=== PATIENT | female | born 1965 | race Caucasian/White ===

== ENCOUNTER → 2016-05-14 | Outpatient (CLI) | payer OTHER ==
--- NOTE | 2016-05-28 08:27 | MM ---
Reason for exam: screening (asymptomatic). Last mammogram was performed 2 years and 8 months ago. History: Patient is nulliparous. Physical Findings: A clinical breast exam by your physician is recommended on an annual basis and results should be correlated with mammographic findings. MG Screening Mammo w CAD Bilateral CC and MLO view(s) were taken. There are scattered fibroglandular densities. No significant changes when compared with prior studies. ASSESSMENT: Negative, BI-RAD 1 RECOMMENDATION: Routine screening mammogram of both breasts in 1 year.
== END ==
LOC: RADMAMWWP 10:15
PROVIDERS: ATTEND Internal Medicine
DX: Z12.31 Encounter for screening mammogram for malignant neoplasm of breast (principal)

== ENCOUNTER 2016-10-11 10:52 | Emergency (ER) | payer OTHER ==
[2016-10-11] MEDS ORDERED: SODIUM CHLORIDE 0.9% 500 ML IV STA (11:26)
--- NOTE | 2016-10-11 11:37 | ED ---
General Adult HPI - General Chief complaint: Extremity Injury, Lower Stated complaint: medication reaction Time Seen by Provider: 10/11/16 11:09 Source: patient Mode of arrival: ambulatory Limitations: no limitations - History of Present Illness Initial comments: This patient is a 51-year-old woman presenting to be evaluated for a number of symptoms that been going on for about 3-4 days. The patient complains of having some mid abdominal pain that she describes as aching. She rates it as moderate, intermittent, and associated with some nausea. She has not noticed anything that helps the pain or makes it get worse. She also has been having symptoms including anxiety, cough, and feeling short of breath that been going on for about the same period of time. Patient went and saw her physician who did give her some medication that she has tried but is not helping. Patient denies associated chest pain, but she has had some diaphoresis. Onset/Timin -: days(s) - Related Data Home Medications Medication Instructions Recorded Confirmed Albuterol Inhaler [Ventolin Hfa 2 puff INHALATION RT-Q6H PRN 07/07/15 10/11/16 Inhaler] Metoprolol Tartrate [Lopressor] 25 mg PO BID 07/07/15 10/11/16 Sertraline [Zoloft] 200 mg PO DAILY 07/07/15 10/11/16 Simvastatin [Zocor] 20 mg PO HS 07/07/15 10/11/16 traZODone HCL [Desyrel] 100 - 200 mg PO HS 07/07/15 10/11/16 Baclofen 10 mg PO BID PRN 04/25/16 10/11/16 Omeprazole [PriLOSEC] 40 mg PO DAILY 04/25/16 10/11/16 Albuterol Nebulized [Ventolin 2.5 mg INHALATION RT-Q6H PRN 10/11/16 10/11/16 Nebulized] Calcium Carbonate [Calcium] 600 mg PO DAILY 10/11/16 10/11/16 Loratadine [Claritin] 1 tab PO DAILY 10/11/16 10/11/16 Ranitidine HCl 150 mg PO BID PRN 10/11/16 10/11/16 buPROPion HCL [Wellbutrin XL] 300 mg PO DAILY 10/11/16 10/11/16 busPIRone HCL [Buspar] 7.5 mg PO BID 10/11/16 10/11/16 Allergies Allergy/AdvReac Type Severity Reaction Status Date / Time amoxicillin AdvReac Nausea & Verified 10/11/16 13:29 Vomiting Review of Systems ROS Statement: Those systems with pertinent positive or pertinent negative responses have been documented in the HPI. ROS Other: All systems not noted in ROS Statement are negative. Constitutional: Denies: fever, chills Respiratory: Reports: cough, dyspnea. Denies: wheezes, hemoptysis Cardiovascular: Reports: palpitations. Denies: chest pain, orthopnea, edema, syncope Gastrointestinal: Reports: abdominal pain, nausea. Denies: vomiting, diarrhea, constipation, melena, hematochezia Genitourinary: Denies: dysuria, hematuria Skin: Denies: rash Neurological: Denies: headache, weakness, numbness Psychiatric: Reports: anxiety. Denies: homicidal thoughts, suicidal thoughts Past Medical History Past Medical History: Asthma, COPD, GERD/Reflux, GI Bleed, Hyperlipidemia, Hypertension Additional Past Medical History / Comment(s): "Esophageal Ulcers"; Insomnia, ARTRITIS, CARPEL TUNNEL ON LEFT, "PRE-MATURE OVARIES", CHRONIC NAUSEA History of Any Multi-Drug Resistant Organisms: None Reported Past Surgical History: Orthopedic Surgery Additional Past Surgical History / Comment(s): Carpal Tunnel Surgery Past Anesthesia/Blood Transfusion Reactions: No Reported Reaction Past Psychological History: Anxiety, Depression Additional Psychological History / Comment(s): pt. states her depression is helped with medication Smoking Status: Current every day smoker Past Alcohol Use History: None Reported Additional Past Alcohol Use History / Comment(s): pt. states she is down to smoking one cigarette a day Past Drug Use History: Marijuana General Exam Limitations: no limitations General appearance: alert, anxious Head exam: Present: atraumatic, normocephalic Eye exam: Present: normal appearance. Absent: scleral icterus, conjunctival injection ENT exam: Present: mucous membranes dry Neck exam: Present: normal inspection, full ROM Respiratory exam: Present: normal lung sounds bilaterally. Absent: respiratory distress, wheezes, rales, rhonchi, stridor Cardiovascular Exam: Present: normal rhythm, tachycardia, normal heart sounds. Absent: systolic murmur, diastolic murmur, rubs, gallop GI/Abdominal exam: Present: soft, diminished bowel sounds. Absent: distended, tenderness, guarding, rebound, mass, pulsatile mass Extremities exam: Present: normal inspection, normal capillary refill. Absent: pedal edema, calf tenderness Back exam: Present: normal inspection. Absent: CVA tenderness (R), CVA tenderness (L) Neurological exam: Present: alert Psychiatric exam: Present: anxious. Absent: homicidal ideation, suicidal ideation Skin exam: Present: warm, intact, normal color, diaphoretic. Absent: rash Course Vital Signs 10/11/16 10/11/16 10/11/16 10:59 13:00 13:23 Temperature 97.1 F L 98.1 F Pulse Rate 120 H 90 81 Respiratory 20 18 18 Rate Blood Pressure 138/95 144/96 140/77 O2 Sat by Pulse 100 99 Oximetry 10/11/16 15:12 Temperature 98.8 F Pulse Rate 80 Respiratory 18 Rate Blood Pressure 155/69 O2 Sat by Pulse 99 Oximetry EKG Findings - EKG Comments: EKG Findings:: SD interval 122 ms, QRS duration 74 ms QTC 414 ms - EKG Results: EKG: interpreted by ERMD, sinus rhythm (Rate 85 bpm), normal axis, normal QRS - Blocks, [place], Hypertrophy, ST Abn: Repolarization changes or abnormalities: nonspecific abnormality, ST segment, and/or T wave Medical Decision Making - Lab Data Result diagrams: 10/11/16 11:56 10/11/16 11:56 Lab Results 10/11/16 10/11/16 10/11/16 Range/Units 11:55 11:56 11:56 WBC (3.8-10.6) k/uL RBC (3.80-5.40) m/uL Hgb (11.4-16.0) gm/dL Hct (34.0-46.0) % MCV (80.0-100.0) fL MCH (25.0-35.0) pg MCHC (31.0-37.0) g/dL RDW (11.5-15.5) % Plt Count (150-450) k/uL Neutrophils % % Lymphocytes % % Monocytes % % Eosinophils % % Basophils % % Neutrophils # (1.3-7.7) k/uL Lymphocytes # (1.0-4.8) k/uL Monocytes # (0-1.0) k/uL Eosinophils # (0-0.7) k/uL Basophils # (0-0.2) k/uL D-Dimer 0.27 (<0.60) mg/L FEU Sodium (137-145) mmol/L Potassium (3.5-5.1) mmol/L Chloride (98-107) mmol/L Carbon Dioxide (22-30) mmol/L Anion Gap mmol/L BUN (7-17) mg/dL Creatinine (0.52-1.04) mg/dL Est GFR (MDRD) Af Amer (>60 ml/min/1.73 sqM) Est GFR (MDRD) Non-Af (>60 ml/min/1.73 sqM) Glucose (74-99) mg/dL Plasma Lactic Acid Mehran (0.7-2.0) mmol/L Calcium (8.4-10.2) mg/dL Total Bilirubin (0.2-1.3) mg/dL AST (14-36) U/L ALT (9-52) U/L Alkaline Phosphatase (38-126) U/L Troponin I (0.000-0.034) ng/mL NT-Pro-B Natriuret Pep 57 pg/mL Total Protein (6.3-8.2) g/dL Albumin (3.5-5.0) g/dL Amylase (30-110) U/L Lipase (23-300) U/L Urine Color Yellow Urine Appearance Cloudy H (Clear) Urine pH 5.5 (5.0-8.0) Ur Specific [place] 1.015 (1.001-1.035) Urine Protein Trace H (Negative) Urine Glucose (UA) Negative (Negative) Urine Ketones Negative (Negative) Urine Blood Trace H (Negative) Urine Nitrite Negative (Negative) Urine Bilirubin Negative (Negative) Urine Urobilinogen <2.0 (<2.0) mg/dL Ur Leukocyte Esterase Trace H (Negative) Urine RBC 3 (0-5) /hpf Urine WBC 1 (0-5) /hpf Ur Squamous Epith Cells 9 H (0-4) /hpf Urine Bacteria Rare H (None) /hpf Urine Mucus Few H (None) /hpf 10/11/16 10/11/16 10/11/16 Range/Units 11:56 11:56 11:56 WBC (3.8-10.6) k/uL RBC (3.80-5.40) m/uL Hgb (11.4-16.0) gm/dL Hct (34.0-46.0) % MCV (80.0-100.0) fL MCH (25.0-35.0) pg MCHC (31.0-37.0) g/dL RDW (11.5-15.5) % Plt Count (150-450) k/uL Neutrophils % % Lymphocytes % % Monocytes % % Eosinophils % % Basophils % % Neutrophils # (1.3-7.7) k/uL Lymphocytes # (1.0-4.8) k/uL Monocytes # (0-1.0) k/uL Eosinophils # (0-0.7) k/uL Basophils # (0-0.2) k/uL D-Dimer (<0.60) mg/L FEU Sodium 141 (137-145) mmol/L Potassium 5.1 (3.5-5.1) mmol/L Chloride 108 H (98-107) mmol/L Carbon Dioxide 22 (22-30) mmol/L Anion Gap 11 mmol/L BUN 19 H (7-17) mg/dL Creatinine 0.82 (0.52-1.04) mg/dL Est GFR (MDRD) Af Amer >60 (>60 ml/min/1.73 sqM) Est GFR (MDRD) Non-Af >60 (>60 ml/min/1.73 sqM) Glucose 90 (74-99) mg/dL Plasma Lactic Acid Mehran 2.0 (0.7-2.0) mmol/L Calcium 10.0 (8.4-10.2) mg/dL Total Bilirubin 0.9 (0.2-1.3) mg/dL AST 34 (14-36) U/L ALT 25 (9-52) U/L Alkaline Phosphatase 63 (38-126) U/L Troponin I <0.012 (0.000-0.034) ng/mL NT-Pro-B Natriuret Pep pg/mL Total Protein 8.2 (6.3-8.2) g/dL Albumin 4.9 (3.5-5.0) g/dL Amylase 68 (30-110) U/L Lipase 119 (23-300) U/L Urine Color Urine Appearance (Clear) Urine pH (5.0-8.0) Ur Specific [place] (1.001-1.035) Urine Protein (Negative) Urine Glucose (UA) (Negative) Urine Ketones (Negative) Urine Blood (Negative) Urine Nitrite (Negative) Urine Bilirubin (Negative) Urine Urobilinogen (<2.0) mg/dL Ur Leukocyte Esterase (Negative) Urine RBC (0-5) /hpf Urine WBC (0-5) /hpf Ur Squamous Epith Cells (0-4) /hpf Urine Bacteria (None) /hpf Urine Mucus (None) /hpf 10/11/16 Range/Units 11:56 WBC 7.0 (3.8-10.6) k/uL RBC 4.62 (3.80-5.40) m/uL Hgb 14.7 (11.4-16.0) gm/dL Hct 44.7 (34.0-46.0) % MCV 96.8 (80.0-100.0) fL MCH 31.8 (25.0-35.0) pg MCHC 32.8 (31.0-37.0) g/dL RDW 13.3 (11.5-15.5) % Plt Count 302 (150-450) k/uL Neutrophils % 64 % Lymphocytes % 26 % Monocytes % 6 % Eosinophils % 2 % Basophils % 1 % Neutrophils # 4.5 (1.3-7.7) k/uL Lymphocytes # 1.8 (1.0-4.8) k/uL Monocytes # 0.4 (0-1.0) k/uL Eosinophils # 0.1 (0-0.7) k/uL Basophils # 0.1 (0-0.2) k/uL D-Dimer (<0.60) mg/L FEU Sodium (137-145) mmol/L Potassium (3.5-5.1) mmol/L Chloride (98-107) mmol/L Carbon Dioxide (22-30) mmol/L Anion Gap mmol/L BUN (7-17) mg/dL Creatinine (0.52-1.04) mg/dL Est GFR (MDRD) Af Amer (>60 ml/min/1.73 sqM) Est GFR (MDRD) Non-Af (>60 ml/min/1.73 sqM) Glucose (74-99) mg/dL Plasma Lactic Acid Mehran (0.7-2.0) mmol/L Calcium (8.4-10.2) mg/dL Total Bilirubin (0.2-1.3) mg/dL AST (14-36) U/L ALT (9-52) U/L Alkaline Phosphatase (38-126) U/L Troponin I (0.000-0.034) ng/mL NT-Pro-B Natriuret Pep pg/mL Total Protein (6.3-8.2) g/dL Albumin (3.5-5.0) g/dL Amylase (30-110) U/L Lipase (23-300) U/L Urine Color Urine Appearance (Clear) Urine pH (5.0-8.0) Ur Specific [place] (1.001-1.035) Urine Protein (Negative) Urine Glucose (UA) (Negative) Urine Ketones (Negative) Urine Blood (Negative) Urine Nitrite (Negative) Urine Bilirubin (Negative) Urine Urobilinogen (<2.0) mg/dL Ur Leukocyte Esterase (Negative) Urine RBC (0-5) /hpf Urine WBC (0-5) /hpf Ur Squamous Epith Cells (0-4) /hpf Urine Bacteria (None) /hpf Urine Mucus (None) /hpf Disposition Clinical Impression: Abdominal pain Disposition: HOME SELF-CARE Condition: Fair Instructions: Abdominal Pain (ED) Referrals: Noel Spicer MD [Primary Care Provider] - 1-2 days Desean Angel MD [STAFF PHYSICIAN] - 1-2 days
--- NOTE | 2016-10-11 12:13 | XR ---
EXAMINATION TYPE: XR chest 2V DATE OF EXAM: 10/11/2016 COMPARISON: Chest x-ray and CTA chest April 25, 2016. HISTORY: Cough per order. Phlegm and chest fullness with shortness of breath for 4 days. History of a sthma and COPD. TECHNIQUE: Frontal and lateral views of the chest are obtained. FINDINGS: There is no focal air space opacity, pleural effusion, or pneumothorax seen. The cardiac silhouette size is within normal limits. The osseous structures are intact. IMPRESSION: No acute cardiopulmonary process. No significant change from prior studies.
[2016-10-11 12:21] LABS: Basophils # (A) 0.1 k/uL (0-0.2); Basophils % (A) 1 %; CH 32.4; CHCM 33.6; Eosinophils # (A) 0.1 k/uL (0-0.7); Eosinophils % (A) 2 %; HCT 44.7 % (34.0-46.0); HDW 2.13; HGB 14.7 gm/dL (11.4-16.0); Luc # (Auto) 0.14; Luc % (Auto) 2; Lymphocytes # (A) 1.8 k/uL (1.0-4.8); Lymphocytes % (A) 26 %; MCH 31.8 pg (25.0-35.0); MCHC 32.8 g/dL (31.0-37.0); MCV 96.8 fL (80.0-100.0); Mean Platelet Volume 7.4; Monocytes # (A) 0.4 k/uL (0-1.0); Monocytes % (A) 6 %; Neutrophils # (A) 4.5 k/uL (1.3-7.7); Neutrophils % (A) 64 %; RBC 4.62 m/uL (3.80-5.40); RDW 13.3 % (11.5-15.5); WBC (Perox) 6.67
[2016-10-11 12:27] LABS: Appearance,Urine Cloudy (Clear); Bacteria,Urine Rare /hpf; Bilirubin,Urine Negative (Negative); Glucose,Urine (UA) Negative (Negative); Ketones,Urine Negative (Negative); Leukocyte Esterase,Urine Trace (Negative); Mucus,Urine Few /hpf; Nitrite,Urine Negative (Negative); PH, Urine 5.5 (5.0-8.0); Particle Count 6539; Protein,Urine Trace (Negative); RBC,Urine 3 /hpf (0-5); Specific Gravity,Urine 1.015 (1.001-1.035); Squamous Epithelial Cell,Urine 9 /hpf (0-4); UA Billing (MACRO vs. MICRO) MICRO; Urobilinogen,Urine <2.0 mg/dL (<2.0); WBC,Urine 1 /hpf (0-5)
[2016-10-11 12:29] LABS: ALT 25 U/L (9-52); AST 34 U/L (14-36); Alkaline Phosphatase 63 U/L (38-126); Amylase 68 U/L (30-110); Anion Gap 11 mmol/L; Blood Urea Nitrogen 19 mg/dL (7-17); Carbon Dioxide 22 mmol/L (22-30); Chloride 108 mmol/L (98-107); Glucose 90 mg/dL (74-99); Non-African American GFR(MDRD) >60 (>60 ml/min/1.73 sqM); Potassium 5.1 mmol/L (3.5-5.1); Sodium 141 mmol/L (137-145); Total Bilirubin 0.9 mg/dL (0.2-1.3); Total Protein 8.2 g/dL (6.3-8.2)
[2016-10-11 16:22] VITALS: BP 140/89; PULSE 100; RESP 20; TEMP 98.3
== END 2016-10-11 16:21 | disposition home or self-care (01) ==
LOC: EC 10:52
DX: R10.9 Unspecified abdominal pain (principal); R11.0 Nausea; R05 Cough; F41.9 Anxiety disorder, unspecified; R06.02 Shortness of breath; R61 Generalized hyperhidrosis; J45.909 Unspecified asthma, uncomplicated; J44.9 Chronic obstructive pulmonary disease, unspecified; K21.9 Gastro-esophageal reflux disease without esophagitis; E78.5 Hyperlipidemia, unspecified; I10 Essential (primary) hypertension; F32.9 Major depressive disorder, single episode, unspecified; F17.200 Nicotine dependence, unspecified, uncomplicated; Z79.899 Other long term (current) drug therapy; Z88.0 Allergy status to penicillin
CPT/HCPCS: 36415; 71020; 80053; 81001; 82150; 83605; 83690; 83880; 84484; 85025; 85379; 93005; 99284

== ENCOUNTER 2017-09-29 08:56 | Emergency (ER) | payer OTHER ==
[2017-09-29] MEDS ORDERED: KETOROLAC 60 MG/2 ML VIAL IM STA (09:45)
--- NOTE | 2017-09-29 09:56 | ED ---
General Adult HPI - General Chief complaint: Back Pain/Injury Stated complaint: Back Pain Time Seen by Provider: 09/29/17 09:42 Source: patient, RN notes reviewed Mode of arrival: ambulatory Limitations: no limitations - History of Present Illness Initial comments: Patient's a 52-year-old female presented for low back pain over the last 2 days. She does not that a week ago she had some discomfort in lower back with the family doctor was advised that a muscle sprain given some Zanaflex and ibuprofen. Fish little relief with this. She states yesterday she was lifting up her mother's oxygen tank and felt a quick snap in her back. Patient states she feels it lower back wrapping around both on the right and left sides. She admits that is worse with movements of turning, twisting, bending. Patient denies any bowel or bladder incontinence retention. Denies any saddle anesthesia. Denies any lumbar radiculopathy. Patient denies any recent fever, chills, shortness of breath, chest pain, abdominal pain, nausea or vomiting, numbness or tingling, dysuria or hematuria, constipation or diarrhea, headaches or visual changes, or any other complaints. - Related Data Home Medications Medication Instructions Recorded Confirmed Albuterol Inhaler [Ventolin Hfa 2 puff INHALATION RT-Q6H PRN 07/07/15 09/29/17 Inhaler] Metoprolol Tartrate [Lopressor] 25 mg PO BID 07/07/15 09/29/17 Simvastatin [Zocor] 20 mg PO HS 07/07/15 09/29/17 Omeprazole [PriLOSEC] 40 mg PO DAILY 04/25/16 09/29/17 Albuterol Nebulized [Ventolin 2.5 mg INHALATION RT-Q6H PRN 10/11/16 09/29/17 Nebulized] Loratadine [Claritin] 10 mg PO DAILY 10/11/16 09/29/17 Ibuprofen [Motrin] 800 mg PO TID 04/06/17 09/29/17 Promethazine [Phenergan] 25 mg PO BID 04/06/17 09/29/17 Temazepam [Restoril] 30 mg PO HS 04/06/17 09/29/17 Vortioxetine Hydrobromide 20 mg PO DAILY 04/06/17 09/29/17 [Trintellix] Lurasidone HCl [Latuda] 20 mg PO DAILY 09/29/17 09/29/17 tiZANidine [Zanaflex] 4 mg PO Q8HR 09/29/17 09/29/17 Previous Rx's Medication Instructions Recorded Sucralfate [Carafate] 1 gm PO BID #15 tablet 04/06/17 Cyclobenzaprine [Flexeril] 10 mg PO TID #20 tab 09/29/17 Dexamethasone 0.75 mg PO DIRECTED #12 tablet 09/29/17 Allergies Allergy/AdvReac Type Severity Reaction Status Date / Time amoxicillin AdvReac Nausea & Verified 09/29/17 10:02 Vomiting Review of Systems ROS Statement: Those systems with pertinent positive or pertinent negative responses have been documented in the HPI. ROS Other: All systems not noted in ROS Statement are negative. Past Medical History Past Medical History: Asthma, COPD, GERD/Reflux, GI Bleed, Hyperlipidemia, Hypertension Additional Past Medical History / Comment(s): "Esophageal Ulcers"; Insomnia, ARTRITIS, CARPEL TUNNEL ON LEFT, "PRE-MATURE OVARIES", CHRONIC NAUSEA History of Any Multi-Drug Resistant Organisms: None Reported Past Surgical History: Orthopedic Surgery Additional Past Surgical History / Comment(s): Carpal Tunnel Surgery Past Anesthesia/Blood Transfusion Reactions: No Reported Reaction Past Psychological History: Anxiety, Depression Smoking Status: Current every day smoker Past Alcohol Use History: None Reported Past Drug Use History: Marijuana General Exam - General Exam Comments Initial Comments: General: The patient is awake and alert, in no distress, and does not appear acutely ill. Eye: Pupils are equal, round and reactive to light, extra-ocular movements are intact. No nystagmus. There is normal conjunctiva bilaterally. No signs of icterus. Ears, nose, mouth and throat: There are moist mucous membranes and no oral lesions. Neck: The neck is supple, there is no tenderness or JVD. Musculoskeletal: Patient has full range of motion. No sign of step-off deformity of the thoracic or lumbar spine. No tenderness midline. Patient does have some paravertebral tenderness both on the right side and left side the lower lumbar. Strength 5/5. Sensation intact. Pulses equal bilaterally 2+. Neurological: A&O x 3. CN II-XII intact, There are no obvious motor or sensory deficits. Coordination appears grossly intact. Speech is normal. Skin: Skin is warm and dry and no rashes or lesions are noted. Psychiatric: Cooperative, appropriate mood & affect, normal judgment. Limitations: no limitations Course Vital Signs 09/29/17 08:58 Temperature 98.0 F Pulse Rate 70 Respiratory 20 Rate Blood Pressure 103/57 O2 Sat by Pulse 99 Oximetry Medical Decision Making - Medical Decision Making Patient's x-ray reviewed and negative for any acute abnormalities. Results were discussed with the patient. Patient at this time shows no signs of distress. Vitals are stable. Will be discharged with anti-inflammatories, muscle relaxer, and steroids for symptoms advised to follow-up the family doctor over the next 2 days return here to emergency room if any symptoms increase or worsen or for any other concerns. Disposition Clinical Impression: Acute low back pain Disposition: HOME SELF-CARE Condition: Good Instructions: Acute Low Back Pain (ED) Additional Instructions: Please use medication as discussed. Please follow-up with family doctor in the next 2 days of symptoms have not improved. Please return to emergency room if the symptoms increase or worsen or for any other concerns. Prescriptions: Cyclobenzaprine [Flexeril] 10 mg PO TID #20 tab Dexamethasone 0.75 mg PO DIRECTED #12 tablet Is patient prescribed a controlled substance at d/c from ED?: No Referrals: Noel Spicer MD [Primary Care Provider] - 1-2 days Time of Disposition: 10:54
--- NOTE | 2017-09-29 10:03 | XR ---
EXAMINATION TYPE: XR lumbar spine 2 or 3V DATE OF EXAM: 09/29/2017 CLINICAL HISTORY: pain TECHNIQUE: Three views of the lumbar spine are submitted. COMPARISON: None. FINDINGS: There are 5 lumbar type vertebral bodies identified. The lumbar spine shows satisfactory alignment w ithout evidence of acute fracture or dislocation. Vertebral body heights are within normal limits. Mild scattered degenerative disc space narrowing and spondylosis. The overlying soft tissue appears unremarkable. IMPRESSION: No acute fracture or dislocation is seen in the lumbar spine. ICD 10 NO FRACTURE, INITIAL EVALUATION
[2017-09-29 11:24] VITALS: BP 120/63; PULSE 64; RESP 18; TEMP 97.8
== END 2017-09-29 11:23 | disposition home or self-care (01) ==
LOC: EC 08:56
DX: M54.5 Low back pain (principal); J44.9 Chronic obstructive pulmonary disease, unspecified; K21.9 Gastro-esophageal reflux disease without esophagitis; E78.5 Hyperlipidemia, unspecified; I10 Essential (primary) hypertension; M19.90 Unspecified osteoarthritis, unspecified site; F41.9 Anxiety disorder, unspecified; F32.9 Major depressive disorder, single episode, unspecified; G47.00 Insomnia, unspecified; F17.200 Nicotine dependence, unspecified, uncomplicated; Z79.1 Long term (current) use of non-steroidal anti-inflammatories (NSAID); Z79.899 Other long term (current) drug therapy; Z88.0 Allergy status to penicillin; X50.0XXA Overexertion from strenuous movement or load, initial encounter
CPT/HCPCS: 72100; 99283; 96372; J1885